=== PATIENT | male | born 1980 | race Caucasian/White ===

== ENCOUNTER 2021-08-19 12:27 | Outpatient (REF) | payer MEDICAID, SELFPAY ==
--- NOTE | 2021-08-26 13:40 | MHC.AU.HAS ---
Hearing Aid Evaluation Date of Visit: 08/19/21 Solar Energy Advisor Used: Mauritian- By Phone Historical Information: Description of Hearing: Moderate to profound sensorineural hearing loss bilaterally Current personal amplification information, if applicable: Oticon [place] SP5, obtained in 2010 at [facility] Summary: Patient was seen for audiological evaluation (see separate report for details). Patient reports that his right hearing aid has not been working well, and will sometimes make strange noises. Hearing aid maintenance performed. Molds cleaned and tubing replaced. Microphones vacuumed. Hearing aid options discussed. Patient has an Headspaceo 4 phone, which is not compatible with the [facility] phone protocol. It should still be compatible with Coeur[employer] instruments. Hearing Aid Prescription: Based on the individual?s shared listening needs, communication environments, dexterity, desire for connectivity, and personal preferences, the following prescription for amplification has been made: Right ear: Erp Developer: Phonak Model: Roseline P70-UP Battery Size: 675 Color: Black Type of Mold: Microsonic Black Shell M200 Left ear: Erp Developer: Phonak Model: Roseline P70-UP Battery Size: 675 Color: Black Type of Mold: Microsonic Black Shell M2000 Action Taken/Action Needed: Earmold Impressions Taken Prior authorization to be requested Medical Clearance to be requested from PCP/ENT Hearing Instrument Fitting to be scheduled when materials arrive Mauritian interpretation was provided by phone, as no in-person Mauritian interpreters were available. Due to the extent of the patient's hearing loss, he had difficulty understanding the phone bilingual interpreter. For the next appointment, an in-person bilingual interpreter would be highly preferable. Primary Diagnosis: H90.3 Bilateral Sensorineural Hearing Loss Signature: Provider: Derek Zamorano, CCC-A
--- NOTE | 2021-08-26 13:41 | MHC.AU.ANH ---
Adult Audiological Evaluation Date of Visit: 08/19/21 Embroidery Supervisor Used: Hungarian- By Phone Reason for Appointment: History of childhood-onset hearing loss. Ear History: Ear Deformity: Recent Ear Drainage: None Reported Recent Ear Pain: None Reported Recent Ear Infections: None Reported Hearing Instrument History- Right Ear: Hardness Tester: Phonak Model: Roseline P70-UP Serial Number: [id number] Battery Size: 675 Repair Warranty: 05/30/2013 [facility] [place] Date of Fitting: Per Oticon, hearing aid shipped to dispenser on 04/30/2011 Hearing Instrument History- Left Ear: Hardness Tester: Phonak Model: Roseline P70-UP Serial Number: [id number] Battery Size: 675 Warranty: 05/30/2013 Dispensed By: [employer] [place] Date of Fitting: Per Oticon, hearing aid was shipped to dispenser on 04/30/2011 Otoscopy: Right Ear: Unremarkable Left Ear: Unremarkable Tympanometry: Tympanometry performed due to: To assess integrity of the middle ear system Right Ear: Normal Middle Ear System (Type A) Left Ear: Normal Middle Ear System (Type A) Hearing Evaluation: Transducer(s) Used: Insert Earphones Method: Conventional Audiometry Stimuli Used: Pure Tones Right Ear: Description of Hearing: Moderate to profound sensorineural hearing loss Left Ear: Description of Hearing: Moderate to profound sensorineural hearing loss Speech Recognition Threshold (SRT): Method Used: Recorded Lists Stimuli Used: Hungarian Trisyllable Words Right Ear: 70 dBHL Left Ear: 75 dBHL Word Discrimination: Method: Recorded Lists Word Lists Used: Lista Bisil?bica (Hungarian) Right Ear: Attempted- Patient was unable to repeat any of the words presented; however, it is unsure if this was due to poor word discrimination or misunderstanding/misinterpretation of instructions Left Ear: Attempted- Patient was unable to repeat any of the words presented; however, it is unsure if this was due to poor word discrimination or misunderstanding/misinterpretation of instructions Recommendations: Audiological re-evaluation in one year. Hearing aid maintenance performed today. See Hearing Aid Evaluation report for more information. Hungarian interpretation was provided by phone, as no in-person Hungarian interpreters were available. Due to the extent of the patient's hearing loss, he had difficulty understanding the phone director of compensation. For the next appointment, an in-person director of compensation would be highly preferable. Diagnosis: Primary Diagnosis: H90.3 Bilateral Sensorineural Hearing Loss Signature: Provider: Derek Zamorano, DAVINA-A
--- NOTE | 2021-08-26 13:42 | MHC.AU.MED ---
Medical Clearance for Hearing Instrumentation Date: 08/26/21 Patient Name: Vazquez Ochoa Date of : 1980 Primary Care Provider: Referring Provider: Kedar Pelletier MD We have seen your patient on 08/19/21 and have determined that they are a candidate for amplification (See accompanying report). Specifically, they would benefit from: Hearing aid use in both ears There is a statute that addresses Medical Evaluation Requirements prior to fitting a patient with a hearing aid. According to [place] statute 265 CMR:6.03(1), (a) General. Except as provided in 265 CMR 6.03(1)(b), a hearing care professional shall not sell a hearing aid unless the prospective user has presented to the hearing care professional a written statement signed by a licensed physician that states that the patient's hearing loss has been medically evaluated and the patient may be considered a candidate for a hearing aid. The medical evaluation must have taken place within the preceding six months. Please note: Due to the [place] Statute referenced above, we cannot accept a signature other than that of a licensed physician. INVESTOR RELATIONS ANALYST and PA signatures cannot be accepted. I am in agreement with the above recommendation. There is no medical contraindication for hearing instrumentation. Physician Signature Date Physician Name (Printed)
--- NOTE | 2021-08-26 13:46 | MHC.AU.ANH ---
Adult Audiological Evaluation Date of Visit: 08/19/21 Furniture Inspector Used: New Zealander- By Phone Reason for Appointment: History of childhood-onset hearing loss. Ear History: Recent Ear Drainage: None Reported Recent Ear Pain: None Reported Recent Ear Infections: None Reported Hearing Instrument History- Right Ear: Health Plan Specialist: Oticon Model: [place] SP5 BTE Serial Number: [id number] Battery Size: 13 Repair Warranty: 05/30/2013 [facility] [place] Date of Fitting: Per Oticon, hearing aid shipped to dispenser on 04/30/2011 Hearing Instrument History- Left Ear: Health Plan Specialist: Oticon Model: [place] SP5 BTE Serial Number: [id number] Battery Size: 13 Warranty: 05/30/2013 Dispensed By: [employer] [place] Date of Fitting: Per Oticon, hearing aid was shipped to dispenser on 04/30/2011 Otoscopy: Right Ear: Unremarkable Left Ear: Unremarkable Tympanometry: Tympanometry performed due to: To assess integrity of the middle ear system Right Ear: Normal Middle Ear System (Type A) Left Ear: Normal Middle Ear System (Type A) Hearing Evaluation: Transducer(s) Used: Insert Earphones Method: Conventional Audiometry Stimuli Used: Pure Tones Right Ear: Description of Hearing: Moderate to profound sensorineural hearing loss Left Ear: Description of Hearing: Moderate to profound sensorineural hearing loss Speech Recognition Threshold (SRT): Method Used: Recorded Lists Stimuli Used: New Zealander Trisyllable Words Right Ear: 70 dBHL Left Ear: 75 dBHL Word Discrimination: Method: Recorded Lists Word Lists Used: Lista Bisil?bica (New Zealander) Right Ear: Attempted- Patient was unable to repeat any of the words presented; however, it is unsure if this was due to poor word discrimination or misunderstanding/misinterpretation of instructions Left Ear: Attempted- Patient was unable to repeat any of the words presented; however, it is unsure if this was due to poor word discrimination or misunderstanding/misinterpretation of instructions Recommendations: Audiological re-evaluation in one year. Hearing aid maintenance performed today. See Hearing Aid Evaluation report for more information. New Zealander interpretation was provided by phone, as no in-person New Zealander interpreters were available. Due to the extent of the patient's hearing loss, he had difficulty understanding the phone supervisor delivery department. For the next appointment, an in-person supervisor delivery department would be highly preferable. Diagnosis: Primary Diagnosis: H90.3 Bilateral Sensorineural Hearing Loss Signature: Provider: Derek Zamorano, DAVINA-A
== END 2021-08-19 12:28 | disposition home or self-care (01) ==
LOC: HO.SH 12:27
PROVIDERS: Visit Provider Internal Medicine Geriatric Medicine
DX: H90.3 Sensorineural hearing loss, bilateral (principal)
CPT/HCPCS: 92553; 92555; 92567; 92591; 92593; V5275

== ENCOUNTER 2021-09-26 12:34 | Outpatient (REF) | payer MEDICAID, SELFPAY ==
--- NOTE | 2021-09-26 14:24 | MHC.AU.HFA ---
Hearing Instrument Fitting- Adult- Binaural Date of Visit: 09/26/21 Lime Mixer Tender Used: Polish- In Person Hearing Instruments Dispensed: Right Ear: Him Manager: Phonak Model: Roseline P70-UP Serial Number: [id number] Repair Warranty: 11/27/2024 Loss and Damage Warranty: 11/27/2024 Service Plan: 09/26/2022 Battery Size: 675 Color: Black Type of Mold: Microsonic Black Shell M200 Left Ear: Him Manager: Phonak Model: Roseline P70-UP Serial Number: [id number] Repair Warranty: 11/27/2024 Loss and Damage Warranty: 11/27/2024 Service Plan: 09/26/2022 Battery Size: 675 Color: Black Type of Mold: Microsonic Black Shell M2000 Summary of Fitting: Target gain set to 100%. Feedback dental laboratory manager run. Verifit performed and levels adjusted to better reach targets. Patient reported the hearing aids sound good, and did not feel any additional adjustments were necessary at this time. Hearing aid care and maintenance discussed. Patient does not want the hearing aids paired to his phone at this time. Recommendations: Patient is an experienced hearing aid user. He will call for follow-up as needed. Diagnosis Code(s): Primary Diagnosis: H90.3 Bilateral Sensorineural Hearing Loss Signature: Provider: Derek Zamorano, DAVINA-A
== END 2021-09-26 12:35 | disposition home or self-care (01) ==
LOC: HO.HAP 12:34
PROVIDERS: Visit Provider Internal Medicine Geriatric Medicine
DX: Z46.1 Encounter for fitting and adjustment of hearing aid (principal); H90.3 Sensorineural hearing loss, bilateral
CPT/HCPCS: V5011; V5020; V5160; V5261; V5264; V5266

== ENCOUNTER 2022-06-17 13:19 | Outpatient (REF) | payer MEDICAID, SELFPAY | END 2022-06-17 13:20 | disposition home or self-care (01) | LOC: HO.HAP 13:19 | PROVIDERS: Visit Provider Internal Medicine Geriatric Medicine | DX: Z46.1 Encounter for fitting and adjustment of hearing aid (principal); H90.3 Sensorineural hearing loss, bilateral | CPT/HCPCS: V5266 ==

== ENCOUNTER 2023-04-10 13:15 | Outpatient (REF) | payer MEDICAID, SELFPAY ==
--- NOTE | 2023-04-10 15:43 | MHC.AU.HA3 ---
Hearing Instrument Follow-Up- Binaural Date of Visit: 04/10/23 Right Ear: Make, Model, Color, Serial Number: Margarita Dukes P70 UP SN: [id number] Color: Black Life Cycle Assessment Analyst Repair Warranty: 11/27/2024 Life Cycle Assessment Analyst Loss and Damage Warranty: 11/27/2024 [facility] Service Plan: 09/26/2022 Battery Size: 675 Earmold/Dome/CShell/SlimTip:Microsonic Black Shell M200 Dispensed By: [facility] Date of Fittin09/26/2021 Left Ear: Make, Model, Color, Serial Number: Margarita Dukes P70 UP SN: [id number] Color: Black Life Cycle Assessment Analyst Repair Warranty: 11/27/2024 Life Cycle Assessment Analyst Loss and Damage Warranty: 11/27/2024 [facility] Service Plan: 09/26/2022 Battery Size: 675 Earmold/Dome/CShell/SlimTip: Microsonic Black Shell M2000 Dispensed By: [facility] Date of Fittin09/26/2021 Follow-Up Summary: No apprentice electrician scheduled and as previous notes mention, Vazquez cannot understand phone apprentice electrician. Communicated using enStage Translate. Vazquez reported his ear molds are starting to rip at end of canal, left more so than right. Verified in office. He is currently using his old left ear mold. Tubing hardened on both molds. Cleaned hearing aids and ear molds. Replaced tubing. Impressions were taken, bilaterally, without incident. Sent to [employer] for new full shell M2000 black ear molds. Recommendations: Patient will be contacted when materials have arrived. Diagnosis Code(s): Primary Diagnosis: H90.3 Bilateral Sensorineural Hearing Loss Signature: Provider: Verenice Callahan, [facility]A
== END 2023-04-10 13:16 | disposition home or self-care (01) ==
LOC: HO.HAP 13:15
PROVIDERS: Visit Provider Internal Medicine Geriatric Medicine
DX: Z46.1 Encounter for fitting and adjustment of hearing aid (principal); H90.3 Sensorineural hearing loss, bilateral
CPT/HCPCS: 92593; 99499

== ENCOUNTER 2023-05-21 08:02 | Outpatient (REF) | payer MEDICAID, SELFPAY ==
--- NOTE | 2023-05-21 08:25 | MHC.AU.HA3 ---
Hearing Instrument Follow-Up- Binaural Date of Visit: 05/21/23 Right Ear: Make, Model, Color, Serial Number: Margarita Dukes P70 UP SN: [id number] Color: Black Migratory Worker Repair Warranty: 11/27/2024 Migratory Worker Loss and Damage Warranty: 11/27/2024 [facility] Service Plan: 09/26/2022 Battery Size: 675 Earmold/Dome/CShell/SlimTip:Microsonic Black Shell M2000 Dispensed By: [facility] Date of Fittin09/26/2021 Left Ear: Make, Model, Color, Serial Number: Margarita Dukes P70 UP SN: [id number] Color: Black Migratory Worker Repair Warranty: 11/27/2024 Migratory Worker Loss and Damage Warranty: 11/27/2024 [facility] Service Plan: 09/26/2022 Battery Size: 675 Earmold/Dome/CShell/SlimTip: Microsonic Black Shell M2000 Dispensed By: [facility] Date of Fittin09/26/2021 Follow-Up Summary: Communicated using FanGo. Fit new ear molds. Molds are a bit tight, especially in helix region; however, Vazquez reported that they are comfortable. No feedback noted in office. Advised of warranty period and to call as soon as possible if issues with fit or comfort arise. Recommendations: Hearing instrument maintenance in 6 months, or sooner if needed. Please contact our clinic with any questions or concerns. Diagnosis Code(s): Primary Diagnosis: H90.3 Bilateral Sensorineural Hearing Loss Signature: Provider: Verenice Callahan, [facility]3]-A
== END 2023-05-21 08:03 | disposition home or self-care (01) ==
LOC: HO.HAP 08:02
PROVIDERS: Visit Provider Internal Medicine Geriatric Medicine
DX: H90.3 Sensorineural hearing loss, bilateral (principal)
CPT/HCPCS: V5264

== ENCOUNTER 2023-06-22 13:28 | Outpatient (REF) | payer MEDICAID, SELFPAY ==
[2023-06-22 16:27] LABS: Alanine Aminotransferase 135 U/L (0-40); Albumin Level 4.9 g/dL (3.5-5.0); Alkaline Phosphatase 68 U/L (39-117); Aspartate Amino Transferase 55 U/L (5-37); Bilirubin Direct 0.2 mg/dL (0.0-0.5); Bilirubin Total 0.7 mg/dL (0.0-1.0); Total Protein 8.3 g/dL (6.5-8.0)
== END 2023-06-22 13:29 | disposition home or self-care (01) ==
LOC: HO.HHCL 13:28
PROVIDERS: Visit Provider Internal Medicine Geriatric Medicine
DX: K76.0 Fatty (change of) liver, not elsewhere classified (principal)
CPT/HCPCS: 36415; 80076

== ENCOUNTER 2023-07-17 09:42 | Outpatient (REF) | payer MEDICAID, SELFPAY ==
--- NOTE | ~2023-07-17 | US_ITS ---
EXAMINATION: US ABDOMEN COMPLETE CLINICAL INFORMATION: Transaminitis. Steatosis of the liver. COMPARISON: Ultrasound abdomen complete 01/31/2014. TECHNIQUE: Real-time imaging of the abdominal viscera. Limited visualization due to bowel gas. FINDINGS: PANCREAS: Limited visualization of pancreatic tail and head. Imaged portion of pancreatic body is unremarkable. ABDOMINAL AORTA: Limited visualization. INFERIOR VENA CAVA: Visualized portions are normal. LIVER: Increased hepatic parenchymal heterogeneity and echogenicity which could be associated with hepatic steatosis or hepatocellular disease and substantially limits visualization. A 2.5 x 1.6 x 2.0 cm severely hypoechoic/anechoic lesion along the medial margin of the left hepatic lobe inferiorly is difficult to characterize due to limited visualization and may represent an extrahepatic lesion rather than a hepatic lesion. This was not identified on the ultrasound of 01/31/2014. GALLBLADDER: No gallstones. No gallbladder wall thickening. COMMON BILE DUCT: Normal in caliber measuring 0.3 cm in diameter. RIGHT KIDNEY: No hydronephrosis. No renal calculi. Renal cortical thickness is normal. Limited visualization. The kidney measures 10.4 cm in maximum dimension. LEFT KIDNEY: No hydronephrosis. No renal calculi. Renal cortical thickness is normal. Limited visualization. The kidney measures 11.8 cm in maximum dimension. SPLEEN: Normal. The spleen measures 9.6 cm in maximum dimension. FREE FLUID: None. US/US abdomen complete IMPRESSION: 1. Increased hepatic parenchymal heterogeneity and echogenicity which could be associated with hepatic steatosis or hepatocellular disease and substantially limits visualization. 2. A 2.5 cm severely hypoechoic/anechoic lesion along the medial margin of the left hepatic lobe inferiorly is difficult to characterize due to limited visualization and may represent an extrahepatic lesion rather than a hepatic lesion. This was not identified on the ultrasound of 01/31/2014. MRI recommended for further evaluation. This study was presented today 07/20/2023 at 7:47 AM for interpretation. PSA staff will provide results to referring provider at this time.
== END 2023-07-17 09:43 | disposition home or self-care (01) ==
LOC: HO.US 09:42
PROVIDERS: Visit Provider Internal Medicine Geriatric Medicine
DX: K76.0 Fatty (change of) liver, not elsewhere classified (principal); R74.01 Elevation of levels of liver transaminase levels
CPT/HCPCS: 76700

== ENCOUNTER 2023-07-22 14:53 | Outpatient (REF) | payer MEDICAID, SELFPAY ==
[2023-07-22 16:57] LABS: Anion Gap 13 (12-20); Calcium 10.1 mg/dL (8.4-10.2); Carbon Dioxide 26 mmol/L (22-29); Chloride 104 mmol/L (96-108); Estimated Glomerular Filt Rate > 60; Glucose Random 93 mg/dL (60-115); Potassium 4.1 mmol/L (3.3-5.1); Sodium 139 mmol/L (135-145)
[2023-07-22 17:52] LABS: Blood Urea Nitrogen 12 mg/dL (9-16)
[2023-07-24 12:54] LABS: Alpha Fetoprotein 4.7 ng/mL (<6.1)
[2023-07-29 16:28] LABS: FIB-ALT 104 U/L (9-46); FIB-Alpha-2-Macroglobulin 148 mg/dL (106-279); FIB-Apolipoprotein A1 122 mg/dL (94-176); FIB-GGT 28 U/L (3-95); FIB-Haptoglobin 79 mg/dL (43-212); FIB-Total Bilirubin 0.6 mg/dL (0.2-1.2); Liver Fibrosis Score 0.21; Liver Fibrosis Stage F0-F1; Nec Inflam Act Grade A2; Nec Inflam Act Score 0.55
== END 2023-07-22 14:54 | disposition home or self-care (01) ==
LOC: HO.HHCL 14:53
PROVIDERS: Visit Provider Internal Medicine Geriatric Medicine
DX: R74.01 Elevation of levels of liver transaminase levels (principal); K76.0 Fatty (change of) liver, not elsewhere classified; K76.9 Liver disease, unspecified; I10 Essential (primary) hypertension
CPT/HCPCS: 36415; 80048; 81596; 82105

== ENCOUNTER 2023-10-09 12:33 | Outpatient (REF) | payer MEDICAID, SELFPAY | END 2023-10-09 12:34 | disposition home or self-care (01) | LOC: HO.HAP 12:33 | PROVIDERS: Visit Provider Internal Medicine Geriatric Medicine | DX: Z46.1 Encounter for fitting and adjustment of hearing aid (principal); H90.3 Sensorineural hearing loss, bilateral | CPT/HCPCS: V5266 ==

== ENCOUNTER 2024-07-14 09:58 | Outpatient (REF) | payer MEDICAID, SELFPAY | END 2024-07-14 09:59 | disposition home or self-care (01) | LOC: HO.HAP 09:58 | PROVIDERS: Visit Provider Internal Medicine Geriatric Medicine | DX: Z46.1 Encounter for fitting and adjustment of hearing aid (principal); H90.3 Sensorineural hearing loss, bilateral | CPT/HCPCS: V5266 ==

== ENCOUNTER 2025-02-10 11:49 | Outpatient (REF) | payer MEDICAID, SELFPAY ==
--- OUTSIDE RECORDS SUMMARY | 2025-02-10 11:56 | XMS_ITS | Encounter Summary ---
Author Organization [employer] Address [address] [place] [address] Care Team Providers Care Linux Systems Administrator Name Role Phone Name, Kedar VALADEZ Primary Care Provider [phone] Charley Hebert PharmD Unavailable [phone] Encounter Details Date Type Department Care Team (Latest Contact Info) Description 06/21/2019 [facility] CONVERSIONS Dental, Provider, DDS Social History Tobacco Use Types Packs/Day Years Used Date Smoking Tobacco: Never Assessed Sex and Gender Information Value Date Recorded Sex Assigned at Male 07/28/2022 10:21 AM EDT Legal Sex Male 10:21 AM EDT Gender Identity Male 07/28/2022 10:21 AM EDT Sexual Orientation Choose not to disclose 2021 10:21 AM EDT documented as of this encounter Plan of Treatment Not on file documented as of this encounter Visit Diagnoses Not on filedocumented in this encounter Care Teams Linux Systems Administrator Relationship Specialty Start Date End Date Name, MD Kedar [address] [place] [address] PCP - General Family Medicine 03/05/16 Charley Hebert, PharmD [address] [place] [address] Pharmacist Internal Medicine 10/29/21 documented as of this encounter
--- OUTSIDE RECORDS SUMMARY | 2025-02-10 11:56 | XMS_ITS | Clinical Summary ---
Author Organization [employer] [facility] Address [address] [facility] 7[address] [place] [address] Care Team Providers Care Shipmaster Name Role Phone Name, Kedar VALADEZ Primary Care Provider [phone] Charley Hebert PharmD Unavailable [phone] Allergies No known active allergies Medications Blood Pressure Monitor kitIndications:Pr imary hypertension Use as directed to check BP once daily 1 kit 3 Active amLODIPine (Norvasc) 10 MG tabletIndications :Primary hypertension Take 1 tablet (10 mg) by mouth Once daily. 90 tablet 1 4 Active olmesartan (Benicar) 20 MG tabletIndications :Primary hypertension Take 1 tablet (20 mg) by mouth Once daily. 90 tablet 1 4 Active Active Problems Problem Noted Date Diagnosed Date Illiteracy and low-level literacy 02/19/2023 Primary hypertension 08/05/2021 Migraine without aura, not refractory 09/15/2016 Steatosis of liver 04/22/2016 Impaired fasting glucose 01/19/2014 Hearing loss 09/17/2012 Encounters Date Type Department Care Team Description 12/09/2024 Population Health Risk Score [facility] (C3) Department [address] [facility] [address] [place] [address] Provider, Population Health Generic from Last 3 Months Immunizations Immunization Administration Dates Next Due Hep A, Adult 07/22/2023,08/07/2014,01/31/2014 Hep B, adult 08/07/2014,03/07/2014,01/31/2014 HepB-CpG 08/25/2023,07/22/2023 Influenza injectable quadriv alent IIV4 with preservative 12/06/2019,07/16/2017 Influenza injectable quadriv alent preservative free 08/05/2021,09/15/2016 Influenza, IIV3, injectable 07/25/2014, 1 Influenza, Split (incl. robb fied surface antigen) 12/23/2013,09/23/2012 Pfizer Covid-19 Vaccine 12+ 01/10/2021, 1 Td (adult), 5 Lf tetanus tox oid, preservative free, adsorbed 12/17/2021 Tdap 08/27/2011 Social History Tobacco Use Types Packs/Day Years Used Date Smoking Tobacco: Never Smokeless Tobacco: Never Tobacco Cessation:Counseling Given: Not Answered Alcohol Use Standard Drinks/Week Comments Never 0 (1 standard drink = 0.6 oz pur e alcohol) Depression Answer Date Recorded Patient Health Questionnaire-9 Score 0 02/19/2023 Housing Stability Answer Date Recorded What is your housing situation today? I have zamzam cat 07/14/[address] you li ve. Do you have problems with any of the following? None of the above 07/14/2023 Food Insecurity Answer Date Recorded Within the past 12 months, y ou worried that your food would run out before you got money to buy more: Never True 07/14/2023 Within the past 12 months,th e food you bought just didn't last and you didn't have enough money to get more: Never True Transportation Answer Date Recorded In the past 12 months, has l ack of transportation kept you from medical appts, meetings, work or from getting things needed for daily living? No 07/14/2023 Utilities Answer Date Recorded In the past 12 months, has t he electric, gas, oil or water company threatened to shut off services in your home? No 07/14/2023 Depression Answer Date Recorded Patient Health Questionnaire-2 Score 0 02/19/2023 Sex and Gender Information Value Date Recorded Sex Assigned at Male 07/28/2022 10:21 AM EDT Legal Sex Male 10:21 AM EDT Gender Identity Male 07/28/2022 10:21 AM EDT Sexual Orientation Choose not to disclose 2021 10:21 AM EDT Last Filed Vital Signs Vital Sign Reading Time Taken Comments Blood Pressure 130/82 12/29/2023 1:17 PM EDT Pulse 90 10/15/2023 11:10 AM EST Temperature 36.1 ??C (96.9 ??F) 10/15/2023 11:[address] Respiratory Rate 16 10/15/2023 11:10 AM EST Oxygen Saturation 98% 10/15/2023 11:10 AM EST Inhaled Oxygen Concentration - - Weight 79.1 kg (174 lb 6.4 oz) 10/15/2023 11:10 AM EST Height 167 cm (5' 5.75 ) 10/15/2023 11:10 AM EST Body Mass Index 28.36 10/15/2023 11:10 AM EST Plan of Treatment Health Maintenance Due Date Last Done Comments CT Colonography 1979 Colonoscopy 1979 Colorectal Cancer Screening 1979 FIT DNA/Cologuard 1979 FIT 1979 FOBT 1979 HIV Screening 1979 Sigmoidoscopy 1979 Alcohol/Substance Use Screening 1991 Family Planning (PISQ) 1994 Depression Screening 02/20/2024 02/19/2023, 02/20/20 23 SDOH Screening 02/20/2024 02/19/2023 COVID-19 Vaccine ( season) 2024 01/10/2021, 12/19/2020 Influenza Vaccine (#1) 2024 , 12/06/2019, 07/16/2017, Additional history exists Tobacco Screening 10/15/2024 10/15/2023 Lipid Panel 03/02/2028 03/02/2023, 08/12/2021 Zoster Vaccines (1 of 2) 2029 DTaP/Tdap/Td Vaccines (3 - Td or Tdap) 12/18/2031 12/17/2021, 08/27/2011 RSV Patients and Patients Aged 60 years or older (1 - 1-dose 75+ series) 2054 Hepatitis C Screening Completed 03/12/2023 Hepatitis A Vaccines Completed 07/22/2023, 08/07/2014, 01/31/2014 Hepatitis B Vaccines Completed 08/25/2023, 07/22/2023, 08/07/2014, Additional history exists HIB Vaccines Aged Out No longer eligi ble based on patient's age to complete this topic HPV Vaccines Aged Out No longer eligi ble based on patient's age to complete this topic IPV Vaccines Aged Out No longer eligi ble based on patient's age to complete this topic Meningococcal B Vaccine Aged Out No l onger eligible based on patient's age to complete this topic Meningococcal Vaccine Aged Out No milena stan eligible based on patient's age to complete this topic Pneumococcal Vaccine: Pediatrics (0 to 5 Years) and At-Risk Patients (6 to 49) Years) Aged Out No longer eligible based on patient's age to complete this topic RSV under 20 months Aged Out No longe r eligible based on patient's age to complete this topic Rotavirus Vaccines Aged Out No longer eligible based on patient's age to complete this topic Goals Goal Patient Goal Type Associated Problems Recent Progress Patient-Stated? Author Record your blood pressure periodically Blood Pressure No Charley Hebert PharmD Blood Pressure < 140/90 Blood Pressure 130/82(2023 1:17 PM EDT) No Charley Hebert PharmD Procedures Procedure Name Priority Date/Time Associated Diagnosis Comments HEPATITIS PANEL, ACUTE W/REFLEX TO CONFIRMATION Routine 03/12/2023 10:57 AM EDT Transaminitis LIPID PANEL, STANDARD Routine 03/02/2023 10:44 AM EDT PE (physical exam), annual Screening for diabetes mellitus Screening for cholesterol level Screening for prostate cancer from Last 3 Months or Most Recently Relevant to Health Maintenance Results * Hepatitis Panel, Acute??with Reflex to??Confirmation (03/12/2023 10:57 AM EDT) Hepatitis A IgM NON-REACT MANDO NON-REACT [employer] Comment: For additional information, please refer to http://education.Rapt/faq/IQK141 (This link is being provided for informational/ educational purposes only.) Hepatitis B Surface Ag NON-REACT MANDO NON-REACT MANDOSykio-[employer] Hepatitis B Core Antibody IgM NON-REACT MANDO NON-REACT MANDOSykio[facility] Hepatitis C Antibody NON-REACT MANDO NON-REACT MANDO [employer] [place] [employer] Index <0.02 <1.00 [facility] [place] [facility] Comment: HCV antibody was non-reactive. There is no laboratory evidence of HCV infection. In most cases, no further action is required. However, if recent HCV exposure is suspected, a test for HCV RNA (test code 85603) is suggested. For additional information please refer to http://Allocadia.Rapt/faq/BKK58o2 (This link is being provided for informational/ educational purposes only.) Blood Venous blood specimen / Unknown 03/12/2023 10:57 AM EDT 03/12/2023 10:58 AM EDT Narrative [facility] 03/12/2023 9:31 PM EDT FASTING:UNKNOWN FASTING: UNKNOWN us Kedar Pelletier MD LAB BLOOD ORDERABLES Final Resul t [facility] [address], [place] [address] [facility] [place] [employer] [address] [place] [address] * (ABNORMAL) Lipid Panel, Standard (03/02/2023 10:44 AM EDT) Cholesterol, Total 196 <200 mg/dL [facility] [place] [employer] HDL Cholesterol 36(L) > OR = 40 mg/dL [facility] [place] T-Quad 22 Triglycerides 99 <150 mg/dL [facility] LDL Cholesterol 139(H) mg/dL (calc) [employer] [facility] [place] T-[employer] 22 Comment: Reference range: <100 Desirable range <100 mg/dL for primary prevention; ?? <70 mg/dL for patients with CHD or diabetic patients with > or = 2 CHD risk factors. LDL-C is now calculated using the Kristina calculation, which is a validated novel method providing better accuracy than the Friedewald equation in the estimation of LDL-C. Fabrizio WANG et al. SAM. 2013;310(19): 6210-6103 (http://education.NOTIK/faq/RNQ287) Chol/HDLC Ratio 5.4(H) <5.0 (calc) [employer] Non-HDL Cholesterol 160(H) <130 mg/dL (calc) [employer] Comment: For patients with diabetes plus 1 major ASCVD risk factor, treating to a non-HDL-C goal of <100 mg/dL (LDL-C of <70 mg/dL) is considered a therapeutic option. Blood Venous blood specimen / Unknown 03/02/2023 10:44 AM EDT 03/02/2023 10:44 AM EDT Narrative [facility] - 03/02/2023 8:33 PM EDT FASTING:UNKNOWN FASTING: UNKNOWN us Kedar Pelletier MD LAB BLOOD ORDERABLES Final Resul t [facility] [address], [place] [address] [facility] [place] T-Quad 22 [address] [place] [address] from Last 3 Months or Most Recently Relevant to Health Maintenance Insurance [facility] C3 Care Teams Shipmaster Relationship Specialty Start Date End Date Name, MD Kedar [address] [place] [address] PCP - General Family Medicine 03/05/16 Charley Hebert, Seth [address] [place] [address] Pharmacist Internal Medicine 10/29/21
== END 2025-02-10 11:50 | disposition home or self-care (01) ==
LOC: HO.SH 11:49
PROVIDERS: Visit Provider Internal Medicine Geriatric Medicine
DX: Z46.1 Encounter for fitting and adjustment of hearing aid (principal); H90.3 Sensorineural hearing loss, bilateral
CPT/HCPCS: V5266

== ENCOUNTER 2025-06-08 20:43 | Emergency (ER) | payer MEDICAID, SELFPAY ==
--- NOTE | ~2025-06-08 | CT_ITS ---
CLINICAL HISTORY: R flank pain CT abdomen and pelvis without contrast Comparison: None provided Findings: Mild atelectasis at lung bases. Mild right hydroureteronephrosis. 2 mm obstructing stone at the right distal ureter just above the ureterovesicular junction. Right perinephric fat stranding. Hypodense liver. Gallbladder and solid organs otherwise unremarkable. No bowel obstruction, pneumoperitoneum, or pneumatosis. Moderate stool. Appendix not identified. Moderate urinary bladder distention. No ascites or hernia. No acute fracture. IMPRESSION: 1. 2 mm obstructing right distal ureteral stone just above the ureterovesicular junction. 2. Moderate stool without bowel obstruction. 3. Moderate urinary bladder distention with no inflammatory change. 4. Hepatic steatosis. This document has been electronically signed by: Hugh Manriquez MD on 06/09/2025 03:39:56
[2025-06-08 20:49] VITALS: BP 195/117; PULSE 91; RESP 18; TEMP 36.6; O2SAT 98; BMI 31.8
[2025-06-08 21:17] LABS: MANUAL DIFF FLAG NO
[2025-06-08 21:18] LABS: Hematocrit 39.6 % (42.0-52.0); Hemoglobin 14.3 g/dl (14.0-18.0); Imm Gran Abs Auto 0.02 X10*3/uL (0.00-0.03); Imm Gran Pct Auto 0.3 % (0.0-0.4); Lymphocytes Absolute Auto 1.4 X10*3/uL (1.2-4.9); Mean Corpuscular HGB Conc 36.1 g/dl (31.0-36.0); Mean Corpuscular Hemoglobin 29.7 pg (27.0-33.0); Mean Corpuscular Volume 82.2 fL (80.0-98.0); NRBC Abs Auto 0.000 X10*3/uL (0.0-0.012); NRBC Pct Auto 0.0 /100WBC (0.0-0.2); Platelet Count 224 X10*3/uL (160-400); Red Blood Count 4.82 X10*6/uL (4.60-5.80); White Blood Count 6.5 X10*3/uL (4.8-10.8)
[2025-06-08 21:35] LABS: Alanine Aminotransferase 165 U/L (0-40); Albumin Level 4.8 g/dL (3.5-5.0); Alkaline Phosphatase 76 U/L (39-117); Anion Gap 14 (12-20); Aspartate Amino Transferase 69 U/L (5-37); Blood Urea Nitrogen 16 mg/dL (9-16); Calcium 9.4 mg/dL (8.4-10.2); Carbon Dioxide 26 mmol/L (22-29); Chloride 105 mmol/L (96-108); Creatinine Clr Calc Pharmacy 75.1; Estimated Glomerular Filt Rate > 60; Lipase 34 U/L (8-78); Potassium 3.8 mmol/L (3.3-5.1); Sodium 141 mmol/L (135-145); Total Protein 7.9 g/dL (6.5-8.0)
[2025-06-08 22:32] VITALS: BP 189/125; PULSE 82; RESP 18; TEMP 36.8; O2SAT 98
--- NOTE | 2025-06-08 22:35 | ED_ITS ---
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 He denies urinary issues. He cannot get comfortable. It starts around R flank and radiates to groin. He has no hx of renal colic. MD elicited complaint: flank pain Pertinent past history: none Onset (ago): hour(s) (2) Pain Consistency: constant Location: R flank Severity: severe Quality: stabbing Radiation: RLQ Migration to: RLQ Exacerbating factors: nothing Relieving factors: nothing Associated symptoms: nausea and vomiting Related Data Previous Rx's ?Medication ?Instructions ?Recorded ketorolac 10 mg tablet 10 mg PO Q6H PRN pain #20 ta bs 06/09/25 ondansetron 4 mg disintegrating 4 mg PO Q8H PRN nausea and 06/09/25 tablet vomiting #10 tabs oxycodone 5 mg tablet 5 mg PO Q8H PRN pain #10 tab s 06/09/25 tamsulosin 0.4 mg capsule (Flomax) 0.4 mg PO DAILY #6 caps 06/09/25 Allergies Allergy/AdvReac Type Severity Reaction Status Date / Time No Known Allergies (No Known Allergy Verified 06/08/25 20:53 Allergies*) Review of Systems Review of Systems Constitutional : No Weight loss, No Fever, No Chills ENT/Mouth : No sore throat, No Rhinorrhea Eyes: No Swelling, No Redness Cardiovascular : No Chest Pain, No SOB Respiratory : No Cough, No Sputum, No Wheezing Gastrointestinal : Positive Nausea, Positive Vomiting, no Diarrhea, positive abdominal Pain, No Hematochezia, No Melena Genitourinary : No Dysuria, No Urinary Frequency, No Hematuria, No Urgency Musculoskeletal : No joint pain, No Myalgias, No Joint Swelling Skin : No Skin Lesions, No rash Neuro : No Weakness, No Numbness, No Dizziness, No Headache All other systems reviewed and are negative. [facility] Past Medical History Attestation statement: The following information was validated with the patient. Source: old records reviewed Medical History (Updated 06/09/25 @ 03:51 by VALERIE Restrepo) Hearing loss HTN (hypertension) Surgical History (Updated 06/08/25 @ 22:37 by Keke Fraire DO) Hx of appendectomy Social History Social History (Updated 06/08/25 @ 22:36 by Keke Fraire DO) Patient Tobacco Use Status: Never used Tobacco Smoked in Last 30 Days: No Use of substances other than those prescribed or required for medical reasons: No Advance Directives: No Advance Directives Information Provided: Yes Physical Exam ED Vital Signs: Vital Signs - 24 hr 06/08/25 20:49 06/08/25 22:32 06/08/25 22:54 Temperature 98 F 98.2 F 98.2 F Pulse Rate 91 82 79 Respiratory Rate 18 18 15 Blood Pressure 195/117 H 189/125 H 160/112 H Pulse Oximetry 98 98 96 Oxygen Delivery Method Nasal Cannula Room Air Room Air 06/08/25 23:50 06/09/25 00:32 06/09/25 03:35 Temperature 98.1 F 98.2 F Pulse Rate 77 76 82 Respiratory Rate 13 13 19 Blood Pressure 156/101 H 167/104 H 156/114 H Pulse Oximetry 96 95 Oxygen Delivery Method Room Air Room Air BMI result Body Mass Index 31.8 Appearance: Alert. Oriented X3. active vomiting mild acute distress. Eyes: Pupils equal, round and reactive to light. ENT: Pharynx dry MM Neck: Normal inspection. Neck supple. CVS: Normal heart rate and rhythm. Pulses normal. Respiratory: No respiratory distress. Breath sounds normal. Abdomen: Soft and some ttp to R flank but no rebound or guarding Skin: Skin warm and dry. Normal skin color. Normal skin turgor. Extremities: No lower extremity edema. No calf ttp Neuro: Oriented X 3. No motor deficit. No sensory deficit. CN2-12 intact Course Course Course Narrative: signed out to Karen PRESIDENT AND CHIEF EXECUTIVE OFFICER pending urine and CT scan Reevaluation(s) Reevaluation #1: I Janie Jones PA-C have accepted care of the patient and signed out pending labs imaging and final disposition Urinalysis: Hematuria no evidence of infection CT abdomen and pelvis:MPRESSION: 1. 2 mm obstructing right distal ureteral stone just above the ureterovesicular junction. 2. Moderate stool without bowel obstruction. 3. Moderate urinary bladder distention with no inflammatory change. 4. Hepatic steatosis. We will give Flomax we will send with a week's worth of Flomax when he is discharged Medical Decision Making Medical Decision Making [facility] Narrative: 45 yo male who has PMH of HTN, prior appendectomy, hearing loss here with c/o abrupt onset R flank with n/v. He has no hx of renal colic. He will need labs, IVF, IV dilaudid for pain, IV zofran, CT scan for obstructive uropathy. Differential Diagnosis Differential Diagnoses: The differential diagnosis associated with the presentation includes renal colic, dehydration Admission/Observation Consideration of admission/observation: Escalation of care including admission/observation considered Lab Data [facility] Lab Attestation statement: I reviewed the patient's lab results. 06/08/25 21:01 06/08/25 21:01 Labs: Lab Results 06/08/25 06/09/25 Range/Units 21:01 03:06 WBC 6.5 (4.8-10.8) X10*3/uL RBC 4.82 (4.60-5.80) X10*6/uL Hgb 14.3 (14.0-18.0) g/dl Hct 39.6 L (42.0-52.0) % MCV 82.2 (80.0-98.0) fL MCH 29.7 (27.0-33.0) pg MCHC 36.1 H (31.0-36.0) g/dl RDW 11.5 (11.0-16.0) % Plt Count 224 (160-400) X10*3/uL MPV 10.7 (9.4-12.4) fL Immature Gran % (Auto) 0.3 (0.0-0.4) % Neut % (Auto) 70.6 (45-73) % Lymph % (Auto) 21.0 (20-40) % Stephenson % (Auto) 6.4 (2-11) % Eos % (Auto) 1.4 (0-4) % Baso % (Auto) 0.3 (0-2) % Lymph # (Auto) 1.4 (1.2-4.9) X10*3/uL Stephenson # (Auto) 0.4 (0.1-1.2) X10*3/uL Eos # (Auto) 0.1 (0.0-0.4) X10*3/uL Baso # (Auto) 0.0 (0.0-0.2) X10*3/uL Abs Immat Gran (auto) 0.02 (0.00-0.03) X10*3/uL Absolute Neuts (auto) 4.6 (2.0-8.3) x10*3/uL Absolute Nucleated RBC 0.000 (0.0-0.012) X10*3/uL Nucleated RBC % (auto) 0.0 (0.0-0.2) /100WBC Sodium 141 (135-145) mmol/L Potassium 3.8 (3.3-5.1) mmol/L Chloride 105 (96-108) mmol/L Carbon Dioxide 26 (22-29) mmol/L Anion Gap 14 (12-20) BUN 16 (9-16) mg/dL Creatinine 1.16 (0.5-1.4) mg/dL Estim Creat Clear Calc 75.1 Estimated GFR > 60 Random Glucose 147 H (60-115) mg/dL Calcium 9.4 D (8.4-10.2) mg/dL Total Bilirubin 0.4 (0.0-1.0) mg/dL Direct Bilirubin 0.1 (0.0-0.5) mg/dL AST 69 H (5-37) U/L ALT 165 H (0-40) U/L Alkaline Phosphatase 76 (39-117) U/L Total Protein 7.9 (6.5-8.0) g/dL Albumin 4.8 (3.5-5.0) g/dL Lipase 34 (8-78) U/L Urine Color Yellow Urine Appearance Clear Urine pH 7.5 (5.0-9.0) Ur Specific Section 1.020 (1.005-1.025) Urine Protein Negative (Neg-Trace) mg/dL Urine Glucose (UA) Negative (Negative) mg/dL Urine Ketones Negative (Negative) mg/dL Urine Blood Moderate (2+) H (Negative) Urine Nitrite Negative (Negative) Ur Leukocyte Esterase Negative (Negative) Urine RBC >20 H (0-2) /HPF Urine WBC 0-5 (0-5) /HPF Ur Squamous Epith Cells 0-2 (0-2) /HPF Urine Bacteria None Seen (None Seen) Hyaline Casts 0-2 (0-2) /LPF Independent Interpretation I performed an independent interpretation of an: CT Scan Radiology Impression Discussion of test interpretation with radiology: I have reviewed the radiologist's reading. Independent Historian Clinical information obtained from an independent historian. History obtained from or confirmed by: Parent External Record Review External record reviewed: Outpatient record Prescription Management I considered prescription management with: Pain Medication and Other Medications Administered Discontinued Medications Generic Name Dose Route Start Last Admin Trade Name Jayna PRN Reason Stop Dose Admin Hydromorphone HCl 1 mg 06/08/25 22:26 06/08/25 22:48 Hydromorphone Hcl 1 Mg/Ml Syringe IVPUSH 06/08/25 22:27 1 mg ONCE ONE Administration Protocol Hydromorphone HCl 1 mg 06/09/25 03:30 06/09/25 03:36 Hydromorphone Hcl 1 Mg/Ml Syringe IVPUSH 06/09/25 03:31 1 mg ONCE ONE Administration Protocol Lactated Ringer's 1,000 mls @ 999 mls/hr 06/09/25 00:24 06/09/25 01:14 Lr IV 06/09/25 01:24 Infused .Q1H1M ONE Infusion Ketorolac Tromethamine 15 mg 06/09/25 00:24 06/09/25 00:30 Ketorolac Tromethamine 15 Mg/Ml Vial IVPUSH 06/09/25 00:25 15 mg ONCE ONE Administration Ondansetron HCl 4 mg 06/08/25 22:26 06/08/25 22:48 Ondansetron Hcl 4 Mg/2 Ml Vial IVPUSH 06/08/25 22:27 4 mg ONCE ONE Administration Tamsulosin HCl 0.4 mg 06/09/25 03:45 06/09/25 03:55 Tamsulosin Hcl 0.4 Mg Capsule PO 06/09/25 03:46 0.4 mg ONCE ONE Administration Discharge Plan Discharge Clinical Impression: Acute right flank pain, Calculus of distal right ureter Patient Disposition: Home, Self-Care Instructions: Renal Colic (ED), Flank Pain (ED) Additional Instructions: Your passing a kidney stone, it is at the juncture where it meets the bladder, you will likely pass it soon. See home care instructions. Uses Zofran as needed for nausea. Use the ketorolac as needed for pain take medication with food. Take the Flomax as directed, this will help induce urine flow. Use the oxycodone as needed for severe pain. This medication can be constipating, use an [id number]-byk-[id number] stool softener such as Colace to prevent constipation. [facility] will be contacting you within 2 business?days after being discharged from the Emergency?Department.? During this?phone call, they will inform you when your follow up appointment will be scheduled. If you have not received a call from [facility] after 2 business?days, please call the?office at [phone]. Prescriptions: New tamsulosin [Flomax] 0.4 mg capsule 0.4 mg PO DAILY Qty: 6 0RF ondansetron 4 mg tablet,disintegrating 4 mg PO Q8H PRN (Reason: nausea and vomiting) Qty: 10 0RF ketorolac 10 mg tablet 10 mg PO Q6H PRN (Reason: pain) Qty: 20 0RF Rx Instructions: maximum total duration of 5 days from all oral, intranasal, or parenteral formulations. Patient received an IV dose of Toradol here in the emergency room oxycodone 5 mg tablet 5 mg PO Q8H PRN (Reason: pain) Qty: 10 0RF Rx Instructions: Partial Fill upon patient request. Stand Alone Forms: Work/School Release Print Language: Italian
[2025-06-08 22:54] VITALS: BP 160/112; PULSE 79; RESP 15; TEMP 36.8; O2SAT 96
[2025-06-08 23:50] VITALS: BP 156/101; PULSE 77; RESP 13
--- OUTSIDE RECORDS SUMMARY | 2025-06-08 23:56 | XMS_ITS | Clinical Summary ---
Author Organization [employer] Address [address] [facility] [address] [place] [address] Care Team Providers Care Parquet Floor Layer'S Helper Name Role Phone Name, Kedar VALADEZ Primary Care Provider [phone] Charley Hebert PharmD Unavailable [phone] Allergies No known active allergies Medications [...] Impaired fasting glucose 01/19/2014 Hearing loss 09/17/2012 Immunizations Immunization Administration Dates Next Due Hep [...] is your housing situation today? I have zamzammilagros cat 07/14/[address] you [...] 90 10/15/2023 11:10 AM EST Temperature 36.1 C (96.9 F) 10/15/2023 11:10 AM EST Respiratory Rate 16 10/15/2023 11:10 AM EST [...] FOBT 1979 HIV Screening 1979 Sigmoidoscopy 1979 Disability Screening 1979 Alcohol/Substance Use Screening 1991 Family Planning (PISQ) 1994 Depression Screening 02/20/2024 02/19/2023, 02/20/20 23 SDOH Screening 02/20/2024 02/19/2023 Tobacco Screening 10/15/2024 10/15/2023 COVID-19 Vaccine (3 - 2024- season) 2025 01/10/2021, 12/19/2020 Influenza Vaccine (#1) 2025 , 12/06/2019, 07/16/2017, Additional history exists Lipid Panel 03/02/2028 03/02/2023, 08/12/2021 Zoster Vaccines [...] Years) and At-Risk Patients (6 to 49) Years Aged Out No longer eligible based on [...] EDT) Hepatitis A IgM NON-REACT MANDO NON-REACT [employer]Flit Comment: For additional information, please refer to http://education.TekTrak/faq/UEN662 (This link is being provided for informational/ educational purposes only.) Hepatitis B Surface Ag NON-REACT MANDO NON-REACT MANDOFlit Hepatitis B Core Antibody IgM NON-REACT MANDO NON-REACT MANDOFlit Hepatitis C Antibody NON-REACT MANDO NON-REACT MANDOFlit Index <0.02 <1.00 [facility] Comment: HCV antibody was non-reactive. There is no laboratory evidence of HCV infection. In most cases, no further action is required. However, if recent HCV exposure is suspected, a test for HCV RNA (test code 26778) is suggested. For additional information please refer to http://[employer].TekTrak/faq/KVX76h3 (This link is being provided for informational/ educational purposes only.) Blood Venous blood specimen / Unknown 03/12/2023 10:57 AM EDT 03/12/2023 10:58 AM EDT Narrative [facility] - 03/12/2023 9:31 PM EDT FASTING:UNKNOWN FASTING: UNKNOWN us Kedar Pelletier MD LAB BLOOD ORDERABLES Final Resul t [address], [place] [address] [employer] [place] [employer] [address] [place] [address] * (ABNORMAL) Lipid Panel, Standard (03/02/2023 10:44 AM EDT) Cholesterol, Total 196 <200 mg/dL [employer] [place] [employer] HDL Cholesterol 36(L) > OR = 40 mg/dL [employer] [place] [employer] Triglycerides 99 <150 mg/dL [employer] [place] [employer] LDL Cholesterol 139(H) mg/dL (calc) [employer] [place] [employer] Comment: Reference range: <100 Desirable range <100 mg/dL for primary prevention; <70 mg/dL for patients with CHD or diabetic patients with > or = 2 CHD risk factors. LDL-C is now calculated using the Fabrizio-Donta calculation, which is a validated novel method providing better accuracy than the Friedewald equation in the estimation of LDL-C. Fabrizio SS et al. SAM. 2013;310(19): 9479-3242 (http://[employer] Technology/faq/YBJ460) Chol/HDLC Ratio 5.4(H) <5.0 (calc) [employer] Non-HDL Cholesterol 160(H) <130 mg/dL (calc) [employer] Comment: For patients with diabetes plus 1 [...] BLOOD ORDERABLES Final Resul t [facility] [address], [place] [address] [employer] [place] [employer] [address] [place] [address] from Last 3 Months or Most Recently Relevant to Health Maintenance Insurance [facility] [place] [id number] [facility] [address] [place] [address] [place] [address] [place] [address] Care Teams Parquet Floor Layer'S Helper Relationship Specialty Start Date End Date Name, MD Kedar [address] [place] [address] PCP - General Family Medicine 03/05/16 Charley Hebert PharmD [address] [place] [address] Pharmacist Internal Medicine 10/29/21
--- OUTSIDE RECORDS SUMMARY | 2025-06-08 23:56 | XMS_ITS | Encounter Summary ---
Author Organization [employer] Address [address] [facility] [address] [place] [address] Care Team Providers Care Bilingual Teacher Assistant Name Role Phone Name, Kedar VALADEZ Primary Care Provider [phone] Charley Hebert PharmD Unavailable [phone] Encounter Details Date Type Department Care Team (Latest Contact Info) Description 06/21/2019 Abstract C CONVERSIONS Dental, Provider, DDS Social History Tobacco [...] on filedocumented in this encounter Care Teams Bilingual Teacher Assistant Relationship Specialty Start Date End Date Name, MD Kedar [address] [place] [address] PCP - General Family Medicine 03/05/16 Charley Hebert, PharmD [address] [place] [address] Pharmacist Internal Medicine 10/29/21 documented as of this encounter
[2025-06-09] MEDS: Lactated Ringers 1,000 ML 999 ML IV (00:30)
[2025-06-09 00:32] VITALS: BP 167/104; PULSE 76; RESP 13; TEMP 36.7; O2SAT 96
[2025-06-09 03:15] LABS: Appearance Urine Clear; Glucose Urine UA Negative (Negative); PH 7.5 (5.0-9.0); Specific Gravity - Urine 1.020 (1.005-1.025); UMIC TRIGGER UACC YES
[2025-06-09 03:35] VITALS: BP 156/114; PULSE 82; RESP 19; TEMP 36.8; O2SAT 95
[2025-06-09 04:49] VITALS: BP 156/114; PULSE 82; RESP 19; TEMP 36.8; O2SAT 95
== END 2025-06-09 04:50 | disposition home or self-care (01) ==
PROVIDERS: Emergency Provider Emergency Medicine
DX: N20.1 Calculus of ureter (principal); I10 Essential (primary) hypertension; Z79.899 Other long term (current) drug therapy
CPT/HCPCS: 36415; 74176; 80048; 80076; 81001; 83690; 85025; 96361; 96374; 96375; 96376; 99285; J1171; J1885; J2405; J7120

== ENCOUNTER → 2025-06-09 00:03 | Outpatient (BNV) | payer MEDICAID, SELFPAY | PROVIDERS: Emergency Provider Emergency Medicine; Visit Provider Radiology Diagnostic Radiology | DX: N20.1 Calculus of ureter (principal); K76.0 Fatty (change of) liver, not elsewhere classified; N32.89 Other specified disorders of bladder | CPT/HCPCS: 74176 ==

== ENCOUNTER 2025-07-25 09:24 | Outpatient (AMB) | payer MEDICAID, SELFPAY ==
--- NOTE | 2025-07-25 09:28 | A.OFFVIS_ITS ---
Intake Visit Reasons: kidney stone Intake Note: New Patient is present for Kidney stones Urology Rx: Tamsulosin Blood Thinners:None Imaging completed: Tamsulosin Tower Hoist Operator Required: No Accompanied by: Self / Same As Patient Allergies No Known Allergies (No Known Allergies*) Allergy (Verified 07/25/25 09:29) HPI Comments Details: Vazquez is a pleasant male. Translation provided by daughter who was accompanying him. He is a patient of Dr. Dunlap. He is seen for the following urologic conditions. - nephrolithiasis Presentation through emergency room No prior stone history CT scan distal right 2 mm stone No other stone seen Had been drinking significant quantities of soda Recommendation for 64-80 oz per day water Six-month follow-up imaging PFSH Medical History (Updated 07/25/25 @ 10:07 by Vijay Del Rio MD) Hearing loss HTN (hypertension) Surgical History (Updated 06/08/25 @ 22:37 by Keke Fraire DO) Hx of appendectomy Social History (Updated 06/08/25 @ 22:36 by Keke Fraire DO) Patient Tobacco Use Status: Never used Tobacco Review of Systems Const Denies chills and Denies fever(s) Card Reports no additional complaints and Denies syncope Resp Denies cough GI Denies abdominal pain and Denies heartburn Reports as per HPI and Denies change in libido Neuro Denies syncope Psych Denies change in libido Endo Denies change in libido Physical Exam Const General: cooperative, healthy appearing, comfortable and no acute distress Orientation/consciousness: patient oriented x3 HEENT Face and sinus: Yes normal facial exam Mouth: moist mucous membranes Neck Neck: Yes normal visual inspection, Yes full ROM and Yes trachea midline Chest Chest palpation & inspection: normal inspection of the chest Resp Effort & Inspection: normal respiratory effort, able to speak in complete sentences and no respiratory distress GI Inspection: Yes normal to inspection Back/Spine/Pelvis Cervical Spine: normal cervical lordosis Thoracic/Lumbar Spine: thoracic and lumbar spine normal to inspection Skin General skin exam: no rashes or lesions noted Neuro General: patient oriented x3, gait normal, tone normal and moves all extremities Extrem General: Yes normal to inspection and Yes capillary refill normal Assessment & Plan Assessment & Plan (1) Nephrolithiasis: Code(s): N20.0 - Calculus of kidney Category: Medical Plan Six-month follow-up renal ultrasound nurse-practitioner Patient Instructions: This note is constructed using voice recognition software. 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 Imaging studies, laboratory and physical exam results were discussed and reviewed in detail. No major barriers to patient understanding were identified. An opportunity to ask questions regarding the treatment plan was provided. All questions were answered. The patient expressed understanding and agreement with the above treatment plan. The patient is aware they should contact our office by phone for worsening of their current condition or the appearance of new urologic symptoms. Compliance is encouraged with any medications and followup testing that is ordered. It is a privilege to participate in the urologic care of your patient. If you have any questions or concerns regarding treatment for the above conditions, or other urologic issues, please do not hesitate to contact me. The office telephone contact is [phone]. Sincerely, Dr Vijay Del Rio MD, [facility] [place] - Urology Compassionate Specialist Care for the Genitourinary System Coding Level of Care Code New Pt Level 3 (27275) Diagnoses Nephrolithiasis N20.0
--- OUTSIDE RECORDS SUMMARY | 2025-07-25 10:40 | XMS_ITS | Clinical Summary ---
Author Organization [employer] Address [address] [facility] 7[address] [place] [address] Care Team Providers Care Supervisor Wrapping Room Name Role Phone Name, Kedar VALADEZ Primary Care Provider [phone] Charley Hebert PharmD Unavailable [phone] Allergies No known active allergies Medications [...] EDT) Hepatitis A IgM NON-REACT MANDO [facility] [employer] [employer] Comment: For additional information, please refer to http://education.[employer]/faq/GLT801 (This link is being provided for informational/ educational purposes only.) Hepatitis B Surface Ag NON-REACT M[facility]O [facility] [employer] Hepatitis B Core Antibody IgM NON-REACT MANDO NON-[facility] [employer] Hepatitis C Antibody NON-REACT MANDO NON-REACT [employer] Index <0.02 <1.00 [facility] Comment: HCV antibody was non-reactive. There is no laboratory evidence of HCV infection. In most cases, no further action is required. However, if recent HCV exposure is suspected, a test for HCV RNA (test code 96684) is suggested. For additional information please refer to http://[employer]/faq/LNF13r1 (This link is being provided for informational/ educational purposes only.) Blood Venous blood specimen / Unknown 03/12/2023 10:57 AM EDT 03/12/2023 10:58 AM EDT Narrative [facility] - 03/12/2023 9:31 PM EDT FASTING:UNKNOWN FASTING: UNKNOWN us Kedar Pelletier MD LAB BLOOD ORDERABLES Final Resul t [address], [place] [address] [employer] [facility] [address] [place] [address] * (ABNORMAL) Lipid Panel, Standard (03/02/2023 10:44 AM EDT) Cholesterol, Total 196 <200 mg/dL [employer] [facility] HDL Cholesterol 36(L) > OR = 40 mg/dL [employer] [place] [facility] Triglycerides 99 <150 mg/dL [employer] [place] [facility] LDL Cholesterol 139(H) mg/dL (calc) [employer] [place] [facility] Comment: Reference range: <100 Desirable range <100 mg/dL for primary prevention; <70 mg/dL for patients with CHD or diabetic patients with > or = 2 CHD risk factors. LDL-C is now calculated using the Fabrizio-Donta calculation, which is a validated novel method providing better accuracy than the Friedewald equation in the estimation of LDL-C. Fabrizio SS et al. SAM. 2013;310(19): 1093-3562 (http://[employer]/faq/SPS387) Chol/HDLC Ratio 5.4(H) <5.0 (calc) [employer] Non-HDL Cholesterol 160(H) <130 mg/dL (calc) [employer] Comment: For patients with diabetes plus 1 [...] BLOOD ORDERABLES Final Resul t [facility] [address], [place] [address] [employer] [place] [facility] [address] [place] [address] from Last 3 Months or Most Recently Relevant to Health Maintenance Insurance [employer] [id number] [facility] [address] [place] [address] [place] [address] [place] [address] Care Teams Supervisor Wrapping Room Relationship Specialty Start Date End Date Name, MD Kedar [address] [place] [address] PCP - General Family Medicine 03/05/16 Charley Hebert PharmD [address] [place] [address] Pharmacist Internal Medicine 10/29/21
--- OUTSIDE RECORDS SUMMARY | 2025-07-25 10:40 | XMS_ITS | Encounter Summary ---
Author Organization [employer] Address [address] [facility] 7[address] [place] [address] Care Team Providers Care Supervisor Harvesting Name Role Phone Name, Kedar VALADEZ Primary Care Provider [phone] Charley Hebert PharmD Unavailable [phone] Encounter Details Date Type Department Care [...] on filedocumented in this encounter Care Teams Supervisor Harvesting Relationship Specialty Start Date End Date Name, MD Kedar [address] [place] [address] PCP - General Family Medicine 03/05/16 Charley Hebert, PharmD [address] [place] [address] Pharmacist Internal Medicine 10/29/21 documented as of this encounter
== END 2025-07-25 10:20 | disposition home or self-care (01) ==
LOC: HO.HUSH 09:25
PROVIDERS: PCP Family Medicine; Visit Provider Urology
DX: N20.0 Calculus of kidney (principal)
CPT/HCPCS: 99203

== ENCOUNTER → 2025-07-25 09:24 | Outpatient (BNVA) | payer MEDICAID, SELFPAY | PROVIDERS: PCP Family Medicine; Visit Provider Urology | DX: N20.0 Calculus of kidney (principal) | CPT/HCPCS: 99202 ==